=== PATIENT | female | born 1960 | race Caucasian/White ===

== ENCOUNTER → 2016-11-24 | Outpatient (CLI) | payer BC | LOC: MC.RAD 16:25 | DX: Z12.31 Encounter for screening mammogram for malignant neoplasm of breast (principal); N63 Unspecified lump in breast ==

== ENCOUNTER → 2016-11-27 | Outpatient (CLI) | payer BC | LOC: MC.RAD 12:59 | DX: D48.61 Neoplasm of uncertain behavior of right breast (principal) ==

== ENCOUNTER → 2016-12-02 | Outpatient (CLI) | payer BC | LOC: MC.RAD 08:13 | DX: N63 Unspecified lump in breast (principal) ==

== ENCOUNTER → 2017-09-07 | Outpatient (CLI) | payer BC | LOC: MC.RAD 08:37 | DX: N64.89 Other specified disorders of breast (principal) ==

== ENCOUNTER → 2018-08-18 | Outpatient (CLI) | payer BC | LOC: MC.RAD 13:53 | DX: N63.11 Unspecified lump in the right breast, upper outer quadrant (principal) | CPT/HCPCS: G0279 ==

== ENCOUNTER → 2019-03-08 | Outpatient (CLI) | payer BC | LOC: COL.RAD 14:33 | DX: M17.12 Unilateral primary osteoarthritis, left knee (principal); M79.9 Soft tissue disorder, unspecified | CPT/HCPCS: A9585 ==

== ENCOUNTER 2019-04-28 08:13 | Day surgery (SDC) | payer BC ==
[2019-04-28] VITALS (7 sets, daily range): BP systolic 109–140; BP diastolic 67–97; PULSE 71–94; TEMP 98.8–99.5
[~2019-04-28] VITALS: Ht 162.6 cm; Wt 91.4 kg
[2019-04-28] MEDS ORDERED: JANUVIA 100MG100 MG PO (08:37)
[2019-04-28] MEDS ORDERED: GLUCOTROL10 MG PO (08:37)
[2019-04-28] MEDS ORDERED: PREMPRO 0.3 MG-1 TAB PO (08:37)
[2019-04-28] MEDS ORDERED: MAXZIDE 50 MG-71 TAB PO (08:38)
[2019-04-28] MEDS ORDERED: VIIBRYD20 MG PO (08:38)
[2019-04-28] MEDS ORDERED: LOPRESSOR 225 MG/TAB PO (08:38)
[2019-04-28] MEDS ORDERED: XANAX .25M0.25 MG/TA PO (08:39)
[2019-04-28] MEDS ORDERED: VITAMIN C500 MG PO (08:39)
[2019-04-28] MEDS ORDERED: VITAMIN B COMPL1 SGL PO (08:39)
[2019-04-28] MEDS ORDERED: VITAMIN D31000 I1 PO (08:40)
[2019-04-28] MEDS ORDERED: CENTRUM SILVER1 TAB PO (08:40)
[2019-04-28] MEDS ORDERED: ASPIRIN 81M81 MG/TA2 PO (08:41)
--- NOTE | 2019-04-28 09:35 | NUR ---
Pt to [facility] via cart from [facility]. Pt drowsy, but awake. Pt ambulates to recliner with stand by assistance. Warm blanket provided. No visitors are here with pt at this time. Muffin and coffee given per pt request. Pt denies pain or nausea. Will continue to monitor. Call light within reach.
--- NOTE | 2019-04-28 09:50 | NUR ---
Pt dozing on and off. Tolerating her muffin and coffee without difficulties. Will continue to monitor. Call light within reach.
--- NOTE | 2019-04-28 10:05 | NUR ---
Pt continues to rest. Denies needs. Call light within reach.
--- NOTE | 2019-04-28 10:20 | NUR ---
Pt continues to rest. Denies needs. into see pt. Call light within reach.
--- NOTE | 2019-04-28 10:35 | NUR ---
Pt awake. States her ride will be here soon. Will provide discharge instructions.
--- NOTE | 2019-04-28 10:45 | NUR ---
Discharge instructions reviewed. Pt voices understanding. IV site discontinued with all parts intact. Pt up to dress. Call light within reach.
--- NOTE | 2019-04-28 10:50 | NUR ---
Pt escorted to private car via wheel chair. Pt accompanied home by her daughter.
== END 2019-04-28 10:50 | disposition home or self-care (01) ==
LOC: SDCO 08:13
DX: Z12.11 Encounter for screening for malignant neoplasm of colon (principal); K57.32 Diverticulitis of large intestine without perforation or abscess without bleeding; K57.30 Diverticulosis of large intestine without perforation or abscess without bleeding
CPT/HCPCS: J2250; J3010; J7030

== ENCOUNTER → 2019-11-27 | Outpatient (CLI) | payer BC ==
[~2019-11-27] MED LIST: ASPIRIN 81M81 MG/TA2 PO; CENTRUM SILVER1 TAB PO; GLUCOTROL10 MG PO; JANUVIA 100MG100 MG PO; LOPRESSOR 225 MG/TAB PO; MAXZIDE 50 MG-71 TAB PO; PREMPRO 0.3 MG-1 TAB PO; VIIBRYD20 MG PO; VITAMIN B COMPL1 SGL PO; VITAMIN C500 MG PO; VITAMIN D31000 I1 PO; XANAX .25M0.25 MG/TA PO
== END ==
LOC: MC.RAD 13:52
DX: Z12.31 Encounter for screening mammogram for malignant neoplasm of breast (principal)

== ENCOUNTER → 2020-11-26 | Outpatient (CLI) | payer BC | LOC: COL.RAD 10:00 | DX: R05 Cough (principal); Z73.0 Burn-out ==

== ENCOUNTER → 2022-03-06 | Outpatient (CLI) | payer BC | LOC: MC.RAD 13:53 | DX: Z12.31 Encounter for screening mammogram for malignant neoplasm of breast (principal); N64.89 Other specified disorders of breast ==

== ENCOUNTER → 2022-03-09 | Outpatient (CLI) | payer BC | LOC: MC.RAD 12:55 | DX: N60.02 Solitary cyst of left breast (principal) ==